=== PATIENT | male | born 1985 | race Caucasian/White ===

== ENCOUNTER 2017-10-05 18:29 | Emergency (ER) | payer OTHER ==
[~2017-10-05] VITALS: Ht 193 cm; Wt 127.0 kg
--- NOTE | 2017-10-05 18:35 | ED.ADGEN ---
Adult General Chief Complaint Chief Complaint ".. I ve had some nausea, vomiting.. and diarrhea.. maybe 20 times since yesterday... and now I am having some chest pain .." HPI HPI Patient is a 32 year old male [employer] who presents with above hx and complaints of some generalized abdomen pain with nausea and vomiting and diarrhea. Patient reports proximal to 20 episodes of diarrhea. Patient states she's had 5 episodes of vomiting. After vomiting last time he developed chest pain. Patient denies any previous cardiac history. Patient denies any history of blood clots. Patient denies any prior cardiac history. Patient states he is normally healthy. Patient states the chest or epigastric pain has been constant since 1 PM today. Patient denies any intake of bad food. Patient denies any travel or specific ill contacts. Patient is exposed to ill inmates at [facility]. Review of Systems Review of Systems Constitutional: Denies fever or chills [] Eyes: Denies change in visual acuity, redness, or eye pain [] HENT: Denies nasal congestion or sore throat [] Respiratory: Denies cough or shortness of breath [] Cardiovascular: No additional information not addressed in HPI [] GI: History of abdominal pain, nausea, vomiting, and diarrhea []denies bloody stools : Denies dysuria or hematuria [] Musculoskeletal: Denies back pain or joint pain [] Integument: Denies rash or skin lesions [] Neurologic: Denies headache, focal weakness or sensory changes [] Endocrine: Denies polyuria or polydipsia [] All other systems were reviewed and found to be within normal limits, except as documented in this note. Family History Family History Late onset cardiac disease 60-70 yr old Current Medications Current Medications Current Medications Medications (Trade) Dose Ordered Sig/[place] Start Time Stop Time Status Last Admin Dose Admin Famotidine (Pepcid Vial) 20 mg 1X ONCE 10/05/17 19:00 10/05/17 19:01 DC 10/05/17 19:06 20 MG Ketorolac Tromethamine (Toradol) 30 mg 1X ONCE 10/05/17 19:00 10/05/17 19:01 DC 10/05/17 19:06 30 MG Lactated Ringer's 1,000 ml @ 1,000 mls/hr Q1H 10/05/17 19:00 10/05/17 19:59 DC 10/05/17 19:05 1,000 MLS/HR Ondansetron HCl (Zofran) 8 mg 1X ONCE 10/05/17 19:00 10/05/17 19:01 DC 10/05/17 19:06 8 MG Allergies Allergies Allergies Coded Allergies Type Severity Reaction Last Updated Verified No Known Drug Allergies 10/05/17 No Physical Exam Physical Exam Constitutional: Well developed, well nourished, no acute distress, non-toxic appearance. [] HENT: Normocephalic, atraumatic, bilateral external ears normal, oropharynx moist, no oral exudates, nose normal. [] Eyes: PERRLA, EOMI, conjunctiva normal, no discharge. [] Neck: Normal range of motion, no tenderness, supple, no stridor. [] Cardiovascular:Heart rate regular rhythm, no murmur [] Lungs & Thorax: Bilateral breath sounds clear to auscultation [] Abdomen: Bowel sounds normal, soft, no tenderness, no masses, no pulsatile masses. [] Skin: Warm, dry, no erythema, no rash. [] Back: No tenderness, no CVA tenderness. [] Extremities: No tenderness, no cyanosis, no clubbing, ROM intact, no edema. [] Neurologic: Alert and oriented X 3, normal motor function, normal sensory function, no focal deficits noted. [] Psychologic: Affect normal, judgement normal, mood normal. [] Current Patient Data Vital Signs Vital Signs Date Time Temp Pulse Resp B/P (MAP) Pulse Ox O2 Delivery O2 Flow Rate FiO2 10/05/17 23:10 78 20 140/80 (100) 98 10/05/17 21:57 Room Air 10/05/17 18:58 98.7 Lab Results Laboratory Tests Test 10/05/17 18:46 10/05/17 21:09 White Blood Count 10.1 x10^3/uL (4.0-11.0) Red Blood Count 5.27 x10^6/uL (4.30-5.70) Hemoglobin 17.0 g/dL (13.0-17.5) Hematocrit 47.8 % (39.0-53.0) Mean Corpuscular Volume 91 fL (79-100) Mean Corpuscular Hemoglobin 32 pg (25-35) Mean Corpuscular Hemoglobin Concent 36 g/dL (31-37) Red Cell Distribution Width 13.6 % (11.5-14.5) Platelet Count 219 x10^3/uL (140-400) Neutrophils (%) (Auto) 77 % (31-73) H Lymphocytes (%) (Auto) 13 % (24-48) L Monocytes (%) (Auto) 9 % (0-9) Eosinophils (%) (Auto) 1 % (0-3) Basophils (%) (Auto) 0 % (0-3) Neutrophils # (Auto) 7.7 x10^3uL (1.8-7.7) Lymphocytes # (Auto) 1.3 x10^3/uL (1.0-4.8) Monocytes # (Auto) 0.9 x10^3/uL (0.0-1.1) Eosinophils # (Auto) 0.1 x10^3/uL (0.0-0.7) Basophils # (Auto) 0.0 x10^3/uL (0.0-0.2) Prothrombin Time 10.0 SEC (9.4-11.4) Prothrombin Time INR 1.0 (0.9-1.1) PTT 26 SEC (23-33) Sodium Level 139 mmol/L (136-145) Potassium Level 3.8 mmol/L (3.5-5.1) Chloride Level 104 mmol/L (98-107) Carbon Dioxide Level 24 mmol/L (21-32) Anion Gap 11 (6-14) Blood Urea Nitrogen 13 mg/dL (8-26) Creatinine 1.2 mg/dL (0.7-1.3) Estimated GFR (Cockcroft-Gault) 70.2 Glucose Level 93 mg/dL (70-99) Calcium Level 8.9 mg/dL (8.5-10.1) Total Bilirubin 0.7 mg/dL (0.2-1.0) Direct Bilirubin 0.2 mg/dL (0.0-0.2) Aspartate Amino Transferase (AST) 26 U/L (15-37) Alanine Aminotransferase (ALT) 41 U/L (16-63) Alkaline Phosphatase 61 U/L (46-116) Creatine Kinase 157 U/L (39-308) Troponin I Quantitative < 0.017 ng/mL (0-0.055) Total Protein 7.6 g/dL (6.4-8.2) Albumin 4.0 g/dL (3.4-5.0) Lipase 93 U/L (73-393) Urine Opiates Screen Neg (NEG) Urine Methadone Screen Neg (NEG) Urine Barbiturates Neg (NEG) Urine Phencyclidine Screen Neg (NEG) Urine Amphetamine/Methamphetamine Neg (NEG) Urine Benzodiazepines Screen Neg (NEG) Urine Cocaine Screen Neg (NEG) Urine Cannabinoids Screen Neg (NEG) Urine Ethyl Alcohol Neg (NEG) Urine Collection Type Unknown Urine Color [place] Urine Clarity Cloudy Urine pH 5.0 Urine Specific [place] >=1.030 Urine Protein Trace (NEG-TRACE) Urine Glucose (UA) Neg mg/dL (NEG) Urine Ketones (Stick) Neg mg/dL (NEG) Urine Blood Neg (NEG) Urine Nitrite Neg (NEG) Urine Bilirubin Neg (NEG) Urine Urobilinogen Dipstick 1 mg/dL (0.2 mg/dL) Urine Leukocyte Esterase Neg (NEG) Urine RBC 0 /HPF (0-2) Urine WBC 1-4 /HPF (0-4) Urine Squamous Epithelial Cells Occ /LPF Urine Bacteria 0 /HPF (0-FEW) Urine Mucus Mod /LPF EKG EKG My interpretation of EKG shows a sinus rhythm at 87 bpm. There is some nonspecific anterior septal changes but no findings acute STEMI with contralateral changes.[] Radiology/Procedures Radiology/Procedures My interpretation of chest x-ray shows no acute cardiopulmonary findings. There is some basilar atelectasis. Abdomen film shows nonspecific bowel gas pattern.[] Course & Med Decision Making Course & Med Decision Making Pertinent Labs and Imaging studies reviewed. (See chart for details). Patient's stay on a clear fluid diet for the next 2 days. No solid or milk products. Must allow bowel rest. Take Tylenol and ibuprofen for pain. Follow-up primary care. Can take [id number] Pepto-Bismol for episodes of diarrhea. May take Zofran for the nausea and vomiting. Consider follow-up with outpatient stress testing if any concerns of cardiac. [] Final Impression Final Impression 1. Viral syndrome[] Problems: Dragon Disclaimer Dragon Disclaimer This electronic medical record was generated, in whole or in part, using a voice recognition dictation system. PRO BARAJAS MD Oct 05, 2017 18:35
--- NOTE | 2017-10-05 18:48 | EKG ---
[address] [address] Test Date: 2017-10-05 Test Time: 18:35:23 Pat Name: ANALIA WELLS Department: Room: Gender: M Drag Sawyer: SILVIANO : 1985 Requested By: PRO BARAJAS Order Number: [id number] Reading MD: Measurements Intervals [place] Rate: 87 P: 29 ND: 152 QRS: 22 QRSD: 90 T: 23 QT: 328 QTc: 400 Interpretive Statements SINUS RHYTHM QRS(T) CONTOUR ABNORMALITY CONSIDER ANTEROSEPTAL MYOCARDIAL DAMAGE POSSIBLY ABNORMAL ECG RI6.01 No previous ECG available for comparison
[2017-10-05] MEDS ORDERED: IV RINGERS SOLUTION,LACTATED 1,000 ML IV SCH (19:00)
[2017-10-05] MEDS ORDERED: FAMOTIDINE 20 MG/2 ML VIAL IVP ONE (19:00)
[2017-10-05] MEDS ORDERED: ONDANSETRON PF 4 MG/2 ML VIAL. IV ONE (19:00)
[2017-10-05] MEDS ORDERED: KETOROLAC 30 MG/ML VIAL. IV ONE (19:00)
[2017-10-05 19:08] LABS: BASO % 0 % (0-3); EOS # 0.1 x10^3/uL (0.0-0.7); EOS % 1 % (0-3); HEMATOCRIT 47.8 % (39.0-53.0); LYMPH # 1.3 x10^3/uL (1.0-4.8); LYMPH % 13 % (24-48); MEAN CORPUSCULAR HEMOGLOBIN 32 pg (25-35); MEAN CORPUSCULAR HGB CONC 36 g/dL (31-37); MEAN CORPUSCULAR VOLUME 91 fL (79-100); MONO # 0.9 x10^3/uL (0.0-1.1); MONO % 9 % (0-9); NEUT # 7.7 x10^3uL (1.8-7.7); NEUT % 77 % (31-73); PLATELET COUNT 219 x10^3/uL (140-400); RED BLOOD COUNT 5.27 x10^6/uL (4.30-5.70); RED CELL DISTRIBUTION WIDTH 13.6 % (11.5-14.5); WHITE BLOOD COUNT 10.1 x10^3/uL (4.0-11.0)
[2017-10-05 19:47] LABS: CALCIUM 8.9 mg/dL (8.5-10.1); CREATININE 1.2 mg/dL (0.7-1.3); DIRECT BILIRUBIN 0.2 mg/dL (0.0-0.2); GFR 70.2; POTASSIUM 3.8 mmol/L (3.5-5.1); TOTAL BILIRUBIN 0.7 mg/dL (0.2-1.0); TOTAL PROTEIN 7.6 g/dL (6.4-8.2)
[2017-10-05 21:33] LABS: BARBITURATES NEG (NEG); BENZODIAZEPINES NEG (NEG); CANNABINOIDS NEG (NEG); COCAINE NEG (NEG); METHADONE NEG (NEG); OPIATES NEG (NEG); PHENCYCLIDINE NEG (NEG)
[2017-10-05 21:36] LABS: AMPHETAMINE/METHAMPHETAMINE NEG (NEG)
[2017-10-05 22:04] LABS: BACTERIA,URINE 0 /HPF (0-FEW); BILIRUBIN,URINE NEG (NEG); CLARITY,URINE CLOUDY; COLOR,URINE AMBER; GLUCOSE,URINE NEG (NEG); NITRITE,URINE NEG (NEG); RBC,URINE 0 /HPF (0-2); SQUAMOUS EPITHELIAL CELL,UR OCC /LPF; UROBILINOGEN,URINE 1 mg/dL (0.2 mg/dL)
[2017-10-05] MEDS ORDERED: ONDA8TAB12 PO (22:58)
[2017-10-05] MEDS ORDERED: HYDR-79 PO (22:58)
[2017-10-05 23:10] VITALS: BP 140/80
--- NOTE | 2017-10-06 07:47 | RAD ---
Acute abdominal series 10/06/2017 Indication: Abdominal pain. Nausea, vomiting, diarrhea. Comparison study: None Discussion: Low lung volumes noted. Lungs are otherwise grossly clear. No pneumothorax or effusion is seen. Heart size is normal. No evidence of pneumoperitoneum is identified. There are a few scattered fluid levels on upright view in the right colon. The overall bowel gas pattern is nonspecific. Finding can be seen in states. No acute osseous changes are identified. Impression: 1. No evidence of acute cardiopulmonary process 2. Few nonspecific fluid levels seen in the proximal colon with a nonobstructive bowel gas pattern. Findings can be seen with diarrheal states.
== END 2017-10-05 23:13 | disposition home or self-care (01) ==
LOC: ER 18:29
DX: B34.9 Viral infection, unspecified (principal)
CPT/HCPCS: 36415; 74022; 80048; 80076; 80307; 81001; 82550; 83690; 84484; 85025; 85610; 85730; 93005; 96361; 96374; 96375; 99285; J1885; J2405; J7120; S0028; G0479

== ENCOUNTER 2019-06-22 07:56 | Emergency (ER) | payer OTHER ==
[~2019-06-22] VITALS: Ht 193 cm; Wt 127.0 kg
[~2019-06-22 07:56] MED LIST: HYDR-1179 PO; ONDA8TAB12 PO
--- NOTE | 2019-06-22 08:29 | PHYS DOC ---
Past History Past Medical History: No Pertinent History Past Surgical History: No Surgical History Smoking: Less than 1pk/day Alcohol Use: Occasionally Drug Use: None Adult General Chief Complaint Chief Complaint: TESTICULAR PAIN OR INJURY HPI HPI A 34-year-old male presents with bilateral testicular pain that started this morning on a walk with his girlfriend. He reports a fever for the last 2 days and rates the pain as 7 out of 10 and throbbing. He denies swelling, trauma, dysuria, and hematuria. Never had this before. Reports having intercourse last night. Reports doing cross the day before but denies heavy squatting and/or deadlifts. Reports nausea but no vomiting and some mild abdominal pain. Review of Systems Review of Systems Constitutional: Reports fever but denies chills Eyes: Denies redness or eye pain HENT: Denies nasal congestion or sore throat Respiratory: Denies cough or shortness of breath Cardiovascular: Denies chest pain or palpitations GI: Reports abdominal pain, nausea but denies vomiting, diarrhea : Denies dysuria or hematuria. Reports bilateral testicular pain, but denies swelling, trauma, discoloration. Musculoskeletal: Denies back pain or joint pain Integument: Denies rash or skin lesions Neurologic: Denies headache, focal weakness or sensory changes Complete systems were reviewed and found to be within normal limits, except as documented in this note. Current Medications Current Medications Current Medications Medications (Trade) Dose Ordered Sig/[facility] Start Time Stop Time Status Last Admin Dose Admin Azithromycin (Zithromax) 1,000 mg 1X ONCE 06/22/19 08:30 06/22/19 08:31 UNV Ceftriaxone Sodium (Rocephin Im) 250 mg 1X ONCE 06/22/19 08:30 06/22/19 08:31 UNV Ketorolac Tromethamine (Toradol 30mg Vial) 30 mg 1X ONCE 06/22/19 08:30 06/22/19 08:31 UNV Allergies Allergies Allergies Coded Allergies Type Severity Reaction Last Updated Verified No Known Drug Allergies 10/05/17 No Physical Exam Physical Exam Constitutional: Well developed, well nourished, no acute distress, non-toxic appearance, diaphoretic HENT: Normocephalic, atraumatic, oropharynx moist Eyes: PERRL, EOMI, conjunctiva normal, no discharge Neck: Normal range of motion, no tenderness, supple Cardiovascular: Heart rate normal, regular rhythm Lungs & Thorax: Bilateral breath sounds clear to auscultation, no wheezing Abdomen: Soft, no tenderness Skin: Warm, dry, no erythema, no rash Back: No tenderness, no CVA tenderness Extremities: No tenderness, ROM intact, no edema Neurologic: Alert and oriented X 3, normal motor function, normal sensory function, no focal deficits noted Psychologic: Affect normal, judgement normal, mood normal : Bilateral testicular tenderness to palpation. No swelling or discoloration. External genitalia appear normal. No discharge noted Current Patient Data Vital Signs Vital Signs Date Time Temp Pulse Resp B/P (MAP) Pulse Ox O2 Delivery O2 Flow Rate FiO2 06/22/19 08:04 98.4 117 18 95 Room Air EKG EKG [] Radiology/Procedures Radiology/Procedures PROCEDURE: TESTICULAR/SCROTUM TESTICULAR/SCROTUM History: Testicular pain. Comparison: None. Technique: Multiple grayscale, color flow Doppler and Doppler spectral analysis images of the scrotum are obtained. Findings: Right testicle measures 4.5 x 2.5 x 3.3 cm. Right testicle demonstrates normal parenchymal echogenicity. The right epididymis is unremarkable. Left testicle measures 4.0 x 1.9 x 3.2 cm. Left testicle demonstrates normal parenchymal echogenicity. The left epididymis is unremarkable. Small bilateral hydroceles. Septation within the left hydrocele. Scrotal hyperemia or swelling are not seen. Doppler imaging demonstrates normal flow to both testicles, without evidence of torsion. IMPRESSION: 1. No evidence of testicular mass or torsion. 2. Small bilateral hydroceles with septation on the left. Electronically signed by: Derick Powers DO (06/22/2019 10:01 AM) [id number] Course & Med Decision Making Course & Med Decision Making A 34-year-old male presents with bilateral testicular pain. Ultrasound is negati ve for epididymitis and testicular torsion but noted bilateral hydroceles.. UA without acute process. Chlamydia/Gonorrhea cultures pending. Patient was given ceftriaxone and azithromycin for gonorrhea and Chlamydia coverage. Ketorolac was given for pain control in the emergency department. Patient stable for discharge with outpatient follow-up with PCP/urologist. Discussed findings and plan with patient and family, who acknowledge understanding and agreement. Grant Disclaimer Dragon Disclaimer This electronic medical record was generated, in whole or in part, using a voice recognition dictation system. Departure Departure: Impression: Primary Impression: Testicular pain Additional Impression: Hydrocele in adult Disposition: 01 HOME, SELF-CARE Condition: STABLE Referrals: PCPRENATO (PCP) Patient Instructions: Testicular Problems and Self-Exam Additional Instructions: You have been given the Ultrasound results. It appears you have what are called "hydroceles". Both are small and may require further evaluation with a Urolo gist. Please contact your insurance carrier for an Urologist in your network. You may also discuss and get a referral with your family physician. Use scrotal support (ie compression shorts, jock strap) for next few days Scripts Naproxen (NAPROXEN) 375 Mg Tablet 1 TAB PO TID PRN for PAIN, #30 TAB 0 Refills with food Prov: NARCISA MARINELLI DO 06/22/19 Problem Qualifiers NARCISA MARINELLI DO Jun 22, 2019 08:29
[2019-06-22] MEDS ORDERED: KETOROLAC 30 MG/ML VIAL. IM ONE (08:30)
[2019-06-22] MEDS ORDERED: cefTRIAXone IM 250 MG VIAL IM ONE (08:30)
[2019-06-22] MEDS ORDERED: AZITHROMYCIN 250 MG TABLET. PO ONE (08:30)
--- NOTE | 2019-06-22 10:04 | RAD ---
TESTICULAR/SCROTUM History: Testicular pain. Comparison: None. Technique: Multiple grayscale, color flow Doppler and Doppler spectral analysis images of the scrotum are obtained. Findings: Right testicle measures 4.5 x 2.5 x 3.3 cm. Right testicle demonstrates normal parenchymal echogenicity. The right epididymis is unremarkable. Left testicle measures 4.0 x 1.9 x 3.2 cm. Left testicle demonstrates normal parenchymal echogenicity. The left epididymis is unremarkable. Small bilateral hydroceles. Septation within the left hydrocele. Scrotal hyperemia or swelling are not seen. Doppler imaging demonstrates normal flow to both testicles, without evidence of torsion. IMPRESSION: 1. No evidence of testicular mass or torsion. 2. Small bilateral hydroceles with septation on the left. Electronically signed by: Derick Powers DO (06/22/2019 10:01 AM) [id number]
[2019-06-22 11:22] LABS: BILIRUBIN,URINE NEG (NEG); CLARITY,URINE CLEAR; COLOR,URINE AMBER; GLUCOSE,URINE NEG (NEG)
[2019-06-22 11:23] LABS: BACTERIA,URINE FEW /HPF (0-FEW); HYALINE CASTS, URINE OCC /HPF; NITRITE,URINE NEG (NEG); RBC,URINE RARE /HPF (0-2); SPERM,URINE PRESENT /HPF; SQUAMOUS EPITHELIAL CELL,UR OCC /LPF
[2019-06-22 11:45] VITALS: BP 142/88
[2019-06-22] MEDS ORDERED: NAPR-695 PO (11:50)
== END 2019-06-22 11:54 | disposition home or self-care (01) ==
LOC: ER 07:56
DX: N43.3 Hydrocele, unspecified (principal); F17.200 Nicotine dependence, unspecified, uncomplicated
CPT/HCPCS: 36415; 76870; 81001; 87491; 87591; 96372; 99285; J0456; J0696; J1885

== ENCOUNTER 2020-02-25 22:33 | Emergency (ER) | payer OTHER ==
[~2020-02-25] VITALS: Ht 185.4 cm; Wt 127.2 kg
[~2020-02-25 22:33] MED LIST changes: +NAPR-695 PO
--- NOTE | 2020-02-25 22:35 | PHYS DOC ---
Past History Past Medical History: No Pertinent History Past Surgical History: No Surgical History Smoking: Less than 1pk/day Alcohol Use: Occasionally Drug Use: None General Adult HPI: HPI: "... I ve been around people with COVID.. my sister had it.. then I was around my nieces they had a positive COVID test today... And is around them about 4 to 6 hours on Friday at family get together..".."..But I just started feeling bad on Friday... My body hurts everywhere my muscles hurt feel lightheaded fever feel like I got the flu or something..." Patient is a 34 year old male who presents with complaints of myalgia, sore throat, malaise, arthralgia, fever, and fatigue since Friday. Patient has had exposure to sister and 2 nieces that had positive COVID test. Patient denies any immunosuppression. Patient denies any travel outside the [place] area. Patient does not do flu vaccinations. Patient has not following with primary care. Patient does smoke. Review of Systems: Review of Systems: Constitutional: Complains of fever or chills Eyes: Denies change in visual acuity HENT: Complains of nasal congestion or sore throat Respiratory: Complaints of cough or shortness of breath Cardiovascular: Denies chest pain or edema GI: Denies abdominal pain, nausea, vomiting, bloody stools or diarrhea : Denies dysuria Musculoskeletal: Complains of generalized arthralgia, myalgia, back pain and joint pain Integument: Denies rash Neurologic: Denies headache, focal weakness or sensory changes Endocrine: Denies polyuria or polydipsia Lymphatic: Denies swollen glands Psychiatric: Denies depression or anxiety Heart Score: HEART Score for Chest Pain: HEART Score for Chest Pain Response (Comments) Value History Slighlty/Non-Suspicious 0 ECG Normal 0 Age < 45 0 Risk Factors 1 or 2 Risk Factors 1 Troponin < Normal Limit 0 Total 1 Risk Factors: Risk Factors: DM, Current or recent (<one month) smoker, HTN, HLP, family history of CAD, obesity. Risk Scores: Score 0 - 3: 2.5% MACE over next 6 weeks - Discharge Home Score 4 - 6: 20.3% MACE over next 6 weeks - Admit for Clinical Observation Score 7 - 10: 72.7% MACE over next 6 weeks - Early Invasive Strategies Family History: Family History: Sister and 2 nieces have positive COVID test Current Medications: Current Meds: See nursing for home meds Allergies: Allergies: Allergies Coded Allergies Type Severity Reaction Last Updated Verified No Known Drug Allergies 10/05/17 No Physical Exam: PE: Constitutional: Moderate acute distress, non-toxic appearance. [] HENT: Normocephalic, atraumatic, bilateral external ears normal, oropharynx moist, injected pharynx, no oral exudates, nose swollen turbinates and clear rhinorrhea Eyes: PERRLA, EOMI, conjunctiva normal, no discharge. [] Neck: Normal range of motion, no tenderness, supple, no stridor. [] Cardiovascular:Heart rate regular rhythm, no murmur [] Lungs & Thorax: Bilateral breath sounds equal at apex with scattered wheezes on auscultation [] Abdomen: Bowel sounds normal, soft, no tenderness, no masses, no pulsatile masses. [] Skin: Warm, dry, no erythema, no rash. [] Back: No tenderness, no CVA tenderness. [] Extremities: No tenderness, no cyanosis, no clubbing, ROM intact, no edema. No cording appreciated Neurologic: Alert and oriented X 3, normal motor function, normal sensory f unction, no focal deficits noted. [] Psychologic: Affect anxious, judgement normal, mood normal. [] EKG: EKG: My interpretation of EKG shows a sinus rhythm at 88 beats per minutes. Does have occasional PVC. No findings of acute STEMI with contralateral changes. [] Radiology/Procedures: Radiology/Procedures: [][address] [address] IMAGING REPORT Signed PATIENT: ANALIA WELLS ACCOUNT: [id number] : 1985 LOCATION: ER AGE: 34 SEX: M EXAM STATUS: REG ER ORD. PHYSICIAN: PRO BARAJAS MD REASON: DSYPNEA, COUGH AND FEVER PROCEDURE: PORTABLE CHEST 1V EXAM: CHEST 1 VIEW History: Dyspnea, cough, fever COMPARISON: 10/05/2017 TECHNIQUE: Single portable radiograph of the chest FINDINGS: The cardiac silhouette is unremarkable. The lungs are clear bilaterally. The costophrenic sulci are clear and well demarcated. IMPRESSION: No radiographic evidence of an acute cardiopulmonary process. Electronically signed by: Real Hanley MD (02/26/2020 1:29 AM) [id number] DICTATED AND SIGNED BY: REAL HANLEY MD DATE: 02/26/20 0129 CC: PRO BARAJAS MD; PCP,NO ~ Course & Med Decision Making: Course & Med Decision Making Pertinent Labs and Imaging studies reviewed. (See chart for details) Use MDI 2 puffs 4 times a day. Stop smoking. Take Tylenol and ibuprofen for pain. Follow-up primary care. Consider COVID testing after 2 weeks self- isolation to make sure you are still not shedding virus.. Must wear a mask at all times in contact with other individuals that covers your nose and mouth. Do frequent handwashing. Return if any concerns. Impression: 1. Viral syndrome 2. Tobacco use [] Dragon Disclaimer: Dragkirill Disclaimer: This electronic medical record was generated, in whole or in part, using a voice recognition dictation system. Departure Departure: Disposition: 01 HOME/RESIDENCE PRIOR TO ADM Condition: STABLE Referrals: PCP,NO (PCP) Justification of Admission: Justification of Admission: Justification of Admission Dx: N/A Dragon Disclaimer This chart was dictated in whole or in part using Voice Recognition software in a busy, high-work load, and often noisy Emergency Department environment. It may contain unintended and wholly unrecognized errors or omissions. PRO BARAJAS MD Feb 25, 2020 22:35
[2020-02-25] MEDS ORDERED: IV RINGERS SOLUTION,LACTATED 1,000 ML IV SCH (23:53)
[2020-02-25 23:55] LABS: INFLUENZA A PATIENT NEGATIVE (NEGATIVE); INFLUENZA B PATIENT NEGATIVE (NEGATIVE)
[2020-02-26] MEDS ORDERED: ASPIRIN CHEWABLE 81 MG TABLET. PO ONE
[2020-02-26 00:23] LABS: CREATININE 1.3 mg/dL (0.7-1.3); GFR 63.2; POTASSIUM 3.8 mmol/L (3.5-5.1)
[2020-02-26 00:25] LABS: BASO # 0.1 x10^3/uL (0.0-0.2); BASO % 1 % (0-3); EOS # 0.2 x10^3/uL (0.0-0.7); EOS % 2 % (0-3); HEMATOCRIT 44.1 % (39.0-53.0); HEMOGLOBIN 15.2 g/dL (13.0-17.5); LYMPH # 2.6 x10^3/uL (1.0-4.8); LYMPH % 33 % (24-48); MEAN CORPUSCULAR HEMOGLOBIN 33 pg (25-35); MEAN CORPUSCULAR HGB CONC 35 g/dL (31-37); MEAN CORPUSCULAR VOLUME 94 fL (79-100); MONO # 0.9 x10^3/uL (0.0-1.1); MONO % 11 % (0-9); NEUT # 4.2 x10^3uL (1.8-7.7); NEUT % 52 % (31-73); PLATELET COUNT 246 x10^3/uL (140-400); RED BLOOD COUNT 4.67 x10^6/uL (4.30-5.70); RED CELL DISTRIBUTION WIDTH 13.8 % (11.5-14.5)
[2020-02-26 00:35] LABS: ALBUMIN 3.7 g/dL (3.4-5.0); C REACTIVE PROTEIN 14.6 mg/L (0-3.3); DIRECT BILIRUBIN 0.1 mg/dL (0.0-0.2); MAGNESIUM 2.1 mg/dL (1.8-2.4); TOTAL BILIRUBIN 0.3 mg/dL (0.2-1.0); TOTAL PROTEIN 7.5 g/dL (6.4-8.2)
[2020-02-26] MEDS ORDERED: KETOROLAC 30 MG/ML VIAL. ONE (00:50)
[2020-02-26 00:56] LABS: BILIRUBIN,URINE NEG (NEG); CLARITY,URINE CLEAR; COLOR,URINE STRAW; GLUCOSE,URINE NEG (NEG)
[2020-02-26 00:57] LABS: BACTERIA,URINE FEW /HPF (0-FEW); NITRITE,URINE NEG (NEG); RBC,URINE 0 /HPF (0-2); SQUAMOUS EPITHELIAL CELL,UR FEW /LPF; UROBILINOGEN,URINE 0.2 mg/dL (0.2 mg/dL); WBC,URINE 0 /HPF (0-4)
[2020-02-26] MEDS ORDERED: KETOROLAC 30 MG/ML VIAL. IVP ONE (01:00)
[2020-02-26] MEDS ORDERED: KETOROLAC 60 MG/2 ML VIAL. IM ONE (01:00)
[2020-02-26 01:03] LABS: BARBITURATES NEG (NEG); BENZODIAZEPINES NEG (NEG); CANNABINOIDS NEG (NEG); COCAINE NEG (NEG); METHADONE NEG (NEG); OPIATES NEG (NEG); PHENCYCLIDINE NEG (NEG)
[2020-02-26 01:06] LABS: AMPHETAMINE/METHAMPHETAMINE NEG (NEG)
[2020-02-26] MEDS ORDERED: ALBUTEROL SULFATE 8GM INHALER. INH ONE (01:15)
[2020-02-26 01:20] VITALS: BP 138/74
--- NOTE | 2020-02-26 01:32 | RAD ---
EXAM: CHEST 1 VIEW History: Dyspnea, cough, fever COMPARISON: 10/05/2017 TECHNIQUE: Single portable radiograph of the chest FINDINGS: The cardiac silhouette is unremarkable. The lungs are clear bilaterally. The costophrenic sulci are clear and well demarcated. IMPRESSION: No radiographic evidence of an acute cardiopulmonary process. Electronically signed by: Real Hanley MD (02/26/2020 1:29 AM) [id number]
--- NOTE | 2020-02-26 04:51 | EKG ---
[address] [address] Test Date: 2020-02-25 Test Time: 23:14:04 Pat Name: ANALIA WELLS Department: Room: Gender: M Presser Machine: : 1985 Requested By: PRO BARAJAS Order Number: [id number] Reading MD: Measurements Intervals [place] Rate: 88 P: 31 SD: 154 QRS: 23 QRSD: 90 T: 16 QT: 330 QTc: 402 Interpretive Statements SINUS RHYTHM VENTRICULAR PREMATURE COMPLEX(ES) R-S TRANSITION ZONE IN V LEADS DISPLACED TO THE LEFT ABNORMAL ECG RI6.02 No previous ECG available for comparison
== END 2020-02-26 01:30 | disposition home or self-care (01) ==
LOC: ER 22:33
DX: B34.9 Viral infection, unspecified (principal); F17.200 Nicotine dependence, unspecified, uncomplicated
CPT/HCPCS: 36415; 71045; 80048; 80076; 80307; 81001; 82550; 83690; 83735; 83880; 84443; 84484; 85025; 85379; 85610; 85730; 86140; 87040; 87070; 87804; 87880; 93005; 94640; 96361; 96374; 99285; J1885; J7120; J7613; 94664

== ENCOUNTER 2021-08-11 19:59 | Emergency (ER) | payer OTHER ==
[~2021-08-11] VITALS: Ht 193 cm; Wt 135.6 kg
--- NOTE | 2021-08-11 20:05 | PHYS DOC ---
Past History Past Medical History: No Pertinent History Past Surgical History: Other Additional Past Surgical Histo: LEFT ELBOW Smoking: Less than 1pk/day Alcohol Use: Occasionally Drug Use: None Adult General HPI HPI Patient is a 36-year-old male who presents with cold/flu/COVID symptoms for the last 2 days. States he felt warm but did not take his temperature. States he took some Tylenol earlier in the day. Denies recent travel, traumas, known ill contacts, abdominal pain, nausea, vomiting. States he had some soft stool earlier in the day. States he is eating and drinking normally. States he is making urine and stool normally for him. Review of Systems Review of Systems Review of systems otherwise unremarkable except noted in HPI Allergies Allergies Allergies Coded Allergies Type Severity Reaction Last Updated Verified No Known Drug Allergies 10/05/17 No Physical Exam Physical Exam Constitutional: Well developed, well nourished, no acute distress, non-toxic appearance. [] HENT: Normocephalic, atraumatic, bilateral external ears normal, oropharynx moist, no oral exudates, nose normal. [] Eyes: conjunctiva normal, no discharge. [] Neck: Normal range of motion, no tenderness, supple, no stridor. [] Cardiovascular:Heart rate regular rhythm, no murmur [] Lungs & Thorax: No respiratory distress, upper respiratory congestion Abdomen: No abdominal pain Skin: Warm, dry, no erythema, no rash. [] Extremities: No tenderness, no cyanosis, no clubbing, ROM intact, no edema. [] Neurologic: Alert and oriented X 3, no focal deficits noted. [] Psychologic: Affect normal, judgement normal, mood normal. [] EKG EKG [] Radiology/Procedures Radiology/Procedures [] Heart Score C/O Chest Pain: No Risk Factors: Risk Factors: DM, Current or recent (<one month) smoker, HTN, HLP, family history of CAD, obesity. Risk Scores: Risk Factors: DM, Current or recent (<one month) smoker, HTN, HLP, family history of CAD, obesity. Course & Med Decision Making Course & Med Decision Making Patient is a 36-year-old male who presents with cold/flu/COVID symptoms Vital signs notable for hypertension. Physical exam noted above. EKG . Chest x-ray . Given medicines for symptom management. Covid swab pending. Influenza pending. [] Dragon Disclaimer Dragon Disclaimer This electronic medical record was generated, in whole or in part, using a voice recognition dictation system. Departure Departure: Impression: Primary Impression: Viral syndrome Disposition: HOME / SELF CARE / HOMELESS Condition: GOOD Referrals: PCP,NO (PCP) SHLOMO GAMBOA MD Patient Instructions: Viral Syndrome Additional Instructions: Thank you for coming into the emergency department tonight and allowing us to take care of you. Please read the attached information carefully to go over things we discussed. You can use Tylenol, ibuprofen and Benadryl as well as other vgrg-dxo-pcecoas medicines every 6-8 hours as needed over the next couple of days as long as you can tolerate and are not allergic. A good regimen would be 1000 mg of Tylenol every 8 hours, 800 mg of ibuprofen every 8 hours, 50 mg of Benadryl every 6 hours and dextromethorphan cough medicine. Please take your antibiotics as prescribed and until gone. Be prepared as these medicines will help with symptoms but want completely resolve them until the illness has resolved. Some illnesses can stick around for 1 to 2 weeks. Please be sure to eat at least 3 nutritious meals daily, stay hydrated and take a One-A-Day vitamin. Please follow-up with your primary care physician next week to update on your ED visit. Please come back with new or concerning symptoms as discussed. You have been tested for or diagnosed with COVID-19. It is an infection caused by a new type of coronavirus. COVID-19 will cause cold-like or mild flu symptoms in most. It can cause more severe symptoms like problems breathing in some. There is no treatment for COVID-19. The body will clear the infection over time. Self-care will help to ease discomfort. Steps to Take: Self-Care Rest as needed. Healthy habits may help you feel better. Steps include: Choose healthy foods including fruits and vegetables. Drink water throughout the day. Get plenty of sleep each night. If you smoke, try to quit. It may ease breathing. Avoid alcohol. Keep Others Healthy The virus can spread to others. Droplets are released every time you sneeze or cough. The droplets can get into the mouth, nose, or eyes of people near you and lead to infection. To lower the chances of spreading COVID-19 to others: Stay at home until your doctor has said it is safe to leave. If you tested positive this will mean staying isolated until both of the following are true: At least 7 days have passed since the start of illness. You are free of fever for at least 72 hours without the use of medicine. Please check the CDC Covid guidelines daily as a change frequently for quarantine times. During this time: - Avoid public areas, events, or transportation. Do not return to work or school until your doctor has said it is safe to do so. - Call ahead if you need to go to a medical center. Let them know you may have COVID-19. It will help them guide you where to go. They may also ask you to wear a facemask when you come to the office. - If you call for emergency medical services, let them know you may have COVID- 19. While at home: - Try to avoid close contact with others. Stay about 6 feet away. - If possible, spend most of your time in a separate room from others. - Use a face mask if you will be in close contact with others such as sharing a room or vehicle. - Have someone wipe down common surfaces in the home. Use household ceo and co founder every day on areas like doorknobs, counters, or sinks. - Cough or sneeze into a tissue. Throw the tissue away right after use. If a ti ssue is not available, cough or sneeze into your elbow. - Wash your hands often. Wash them after sneezing or coughing. Use soap and water and wash for at least 20 seconds. Alcohol based hand lamp cleaner can be used if soap and water is not available. - Do not prepare food for others. Avoid sharing personal items like forks, spoons, or toothbrushes. - Avoid close contact with pets while you are sick. There is no evidence of the virus passing to pets. This is a safety step until more is known about this virus. Isolation can be frustrating. Social interaction can help. Keep in touch with friends and family through phone and tech options. You can still interact with others in your home, just keep a safe distance of about 6 feet. Follow-up: Your doctors office will check in with you to see if there are any changes in your health. You may be asked to keep track of symptoms to share with them. They will also let you know when you are clear to be in public again. Problems to Look Out For: Contact your doctor if your recovery is not going as you expect. Get emergency care if you have problems such as: - Trouble breathing - Nonstop chest pain or pressure - Changes in awareness, confusion, or problems waking - Lips or face have bluish color - Worsening of symptoms If you think you have an emergency, call for emergency medical services right away. As taken from [facility] Albuterol Sulfate (VENTOLIN HFA INHALER) 18 Gm Hfa.aer.ad 2 PUFF IH PRN Q4HRS PRN for cough/wheeze for 3 Days, #1 EACH 1 Refill Prov: MATIAS JONES MD 08/11/21 Amoxicillin/Potassium Clav (AMOX TR-K CLV 875-125 MG TAB) 1 Each Tablet 1 TAB PO BID for COPD for 7 Days, #13 TAB Prov: MATIAS JONES MD 08/11/21 MATIAS JONES MD Aug 11, 2021 20:05
[2021-08-11] MEDS ORDERED: ONDANSETRON ODT 4 MG TAB.RAPDIS PO ONE (20:15)
[2021-08-11] MEDS ORDERED: diphenhydrAMINE HCL 25 MG CAPSULE PO ONE (20:15)
[2021-08-11] MEDS ORDERED: guaiFENesin/CODEINE 100mg/10mg 5 ML LIQUID PO PRN (20:15)
[2021-08-11] MEDS ORDERED: KETOROLAC 30 MG/ML VIAL. IM ONE (20:30)
[2021-08-11] MEDS ORDERED: AMOXICILLIN/K CLAV 875/125MG TABLET. PO ONE (20:30)
[2021-08-11] MEDS ORDERED: IPRATRPIUM/ALBUTEROL 0.5/2.5MG 3 ML NEBU. NEB ONE (20:30)
[2021-08-11] MEDS ORDERED: DEXAMETHASONE 4 MG TABLET PO ONE (20:30)
[2021-08-11] MEDS ORDERED: ALBU2.5V8 IH (20:34)
[2021-08-11] MEDS ORDERED: AMOX1TAB11 PO (20:34)
[2021-08-11] MEDS ORDERED: ALBUTEROL SULFATE 8GM INHALER. ONE (20:42)
[2021-08-11] MEDS ORDERED: ALBUTEROL SULFATE 8GM INHALER. INH ONE (20:45)
--- NOTE | 2021-08-11 20:45 | RAD ---
Exam: Chest one view INDICATION: Cough, Covid TECHNIQUE: Frontal view of the chest Comparisons: 02/26/2020 FINDINGS: The cardiomediastinal silhouette and pulmonary vessels are within normal limits. Subtle strandy opacity at lung bases. No pleural effusion. IMPRESSION: Findings likely related to atelectasis versus developing infectious process. Electronically signed by: Griselda Barrientos MD (08/11/2021 8:43 PM) JEREMÍAS
[2021-08-11 21:10] VITALS: BP 141/91
--- NOTE | 2021-08-11 21:20 | EKG ---
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
== END 2021-08-11 21:12 | disposition home or self-care (01) ==
LOC: ER 19:59
DX: B34.9 Viral infection, unspecified (principal); F17.200 Nicotine dependence, unspecified, uncomplicated; Z20.822 Contact with and (suspected) exposure to COVID-19
CPT/HCPCS: 71045; 87426; 93005; 94640; 96372; 99285; C9803; J1885; J8540; Q0162; Q0163; U0003